=== PATIENT | male | born 1955 | race Caucasian/White ===

== ENCOUNTER 2020-10-24 16:36 | Emergency (ER) | payer OTHER ==
[~2020-10-24] VITALS: Ht 185.4 cm; Wt 115.7 kg
[2020-10-24] MEDS ORDERED: FUROSEMIDE 40 MG/4 ML VIAL IV ONE ×2 (17:30→21:00)
[2020-10-24 18:06] LABS: Alanine Aminotransferase 13 U/L (16-61); Albumin 2.7 g/dL (3.4-5.0); Anion Gap 9 (5-15); Aspartate Aminotransferase 8 U/L (15-37); BUN/Creatinine Ratio 13.9; Blood Urea Nitrogen 43 mg/dL (7-18); Calcium 8.4 mg/dL (8.5-10.1); Carbon Dioxide 20 mmol/L (21-32); Chloride 112 mmol/L (98-107); GFR African American 26 mL/min; GFR Non-African American 22 mL/min; Glucose 68 mg/dL (74-106); Potassium 4.1 mmol/L (3.5-5.1); Sodium 141 mmol/L (136-145)
[2020-10-24 18:07] LABS: Basophils # (auto) 0.1 10 ^3/uL (0-0.2); Basophils % (auto) 1.3 % (0.0-2.0); Eosinophils # (auto) 0.5 10 ^3/uL (0-0.8); Eosinophils % (auto) 4.9 % (0.0-7.0); Hematocrit 32.2 % (41.0-53.0); Hemoglobin 10.8 g/dL (13.5-17.5); Lymphocytes # (auto) 1.7 10 ^3/uL (0.4-5.4); Lymphocytes % (auto) 17.9 % (10.0-50.0); Mean Corpuscular Hemoglobin 29.3 pg (28.0-32.0); Mean Corpuscular Hgb Conc. 33.7 g/dL (32.0-36.0); Monocytes # (auto) 0.8 10 ^3/uL (0-1.3); Monocytes % (auto) 8.1 % (0.0-12.0); Neutrophils # (auto) 6.3 10 ^3/uL (1.6-8.6); Neutrophils % (auto) 67.8 % (37.0-80.0); Nucleated Red Blood Cells % 0.1 %; Platelet Count (auto) 333 10^3/uL (140-450); White Blood Cell 9.3 10^3/uL (4.4-10.8)
[2020-10-24 18:08] LABS: Alkaline Phosphatase 76 U/L (45-117); Bilirubin, Total 0.2 mg/dL (0.2-1.0); Total Protein 7.7 g/dL (6.4-8.2)
[2020-10-24] MEDS ORDERED: cloNIDine HCL 0.1 MG TAB PO ONE (20:30)
[2020-10-24] MEDS ORDERED: hydrALAZINE HCL 20 MG/ML VL IV PRN (21:00)
[2020-10-24] MEDS ORDERED: FUROSEMIDE 40 MG/4 ML VIAL ONE (21:04)
[2020-10-25 09:09] VITALS: BP 152/86
== END 2020-10-25 09:28 | disposition home or self-care (01) ==
LOC: ER 16:36
DX: I13.2 Hypertensive heart and chronic kidney disease with heart failure and with stage 5 chronic kidney disease, or end stage renal disease (principal); I50.33 Acute on chronic diastolic (congestive) heart failure; N18.6 End stage renal disease; E11.22 Type 2 diabetes mellitus with diabetic chronic kidney disease; E78.5 Hyperlipidemia, unspecified; Z20.822 Contact with and (suspected) exposure to COVID-19; Z98.890 Other specified postprocedural states
CPT/HCPCS: 36415; 71045; 80053; 83735; 83880; 84132; 84484; 85025; 87426; 93005; 96374; 96376; 99285; J1940